=== PATIENT | male | born 1940 | race Caucasian/White ===

== ENCOUNTER 2016-09-15 12:38 | Day surgery (SDC) | payer MEDICARE ==
--- NOTE | ~2016-09-15 | EGD ---
EGD REPORT [facility] [address] [id number] NAME: GERTRUDIS ABDALLA : [birth year] STATUS : REG [facility]#: [id number] AGE: 76 ADM/REG DATE : 09/15/16 MR#: [id number] REPORT SERV DATE: 09/15/16 DICTATED BY: GOOD CINTRON DATE: 09/15/16 REPORT STATUS : Draft TRANSCRIBED BY: [employer] DATE: 09/15/16 Endoscopy Center Patient Name: Gertrudis Abdalla Date of : 1940 Attending MD: GOOD CINTRON MD Procedure Date No Time: 09/15/2016 Procedure: Upper GI endoscopy Indications: Gastro-esophageal reflux disease, Diarrhea Referring MD: TAYLOR THOMAS Medicines: See the Anesthesia note for documentation of the administered medications Complications: No immediate complications. Procedure: Pre-Anesthesia Assessment: - ASA Grade Assessment: III - A patient with severe systemic disease. After obtaining informed consent, the endoscope was passed under direct vision. Throughout the procedure, the patient's blood pressure, pulse, and oxygen saturations were monitored continuously. The GIF H190 [id number] was introduced through the mouth, and advanced to the second part of duodenum. The upper GI endoscopy was accomplished without difficulty. The patient tolerated the procedure well. Findings: The 2nd part of the duodenum was normal. Biopsies were taken with a cold forceps for histology. Erythematous mucosa was found in the duodenal bulb. Mild inflammation was found in the gastric antrum. Biopsies were taken with a cold forceps for histology. The cardia and gastric fundus were normal on retroflexion. A small hiatus hernia was present. There were esophageal mucosal changes suspicious for short-segment Ho's esophagus present in the lower third of the esophagus. The maximum longitudinal extent of these mucosal changes was 1 cm in length. Biopsies were taken with a cold forceps for histology. Impression: - Normal 2nd part of the duodenum. Biopsied. - Erythematous duodenopathy. - Gastritis. Biopsied. - Hiatus hernia. - Esophageal mucosal changes suspicious for short-segment Ho's esophagus. Biopsied. Recommendation: - Patient has a contact number available for EGD REPORT [address] [address] NAME: GERTRUDIS ABDALLA : 40 STATUS : REG [facility] [place] PAT#: [id number] AGE: 76 ADM/REG DATE : 09/15/16 MR#: [id number] REPORT SERV DATE: 09/15/16 DICTATED BY: GOOD CINTRON DATE: 09/15/16 REPORT STATUS : Draft TRANSCRIBED BY: [employer] DATE: 09/15/16 emergencies. The signs and symptoms of potential delayed complications were discussed with the patient. Return to normal activities tomorrow. Written discharge instructions were provided to the patient. - Regular diet. - Continue present medications. - FOR YOUR BIOPSY RESULTS: Please go to [email or web address] and register to receive your results via the portal. Your biopsy results will be posted there in about 7 to 10 days. IF you do not see result in 10 days, call office. Procedure Code(s): --- Professional --- 07569, Esophagogastroduodenoscopy, flexible, transoral; with biopsy, single or multiple Diagnosis Code(s): --- Professional --- K22.9, Disease of esophagus, unspecified K31.89, Other diseases of stomach and duodenum K29.70, Gastritis, unspecified, without bleeding K44.9, Diaphragmatic hernia without obstruction or gangrene K21.9, Gastro-esophageal reflux disease without esophagitis R19.7, Diarrhea, unspecified CPT copyright 2013 [employer] [place] [employer]. All rights reserved. The codes documented in this report are preliminary and upon label coder review may be revised to meet current compliance requirements. Good Cintron MD GOOD CINTRON MD 09/15/2016 2:21 PM This report has been signed electronically. Number of Addenda: 0 Note Initiated On: 09/15/2016 2:08 PM Scope Withdrawal Time 0 hours 0 minutes 0 seconds [id number] [place] [place] [id number]
--- NOTE | ~2016-09-15 | EGD ---
EGD REPORT [facility] [address] [address] NAME: GERTRUDIS ABDALLA : 40 STATUS : REG [facility]#: [id number] AGE: 76 ADM/REG DATE : 09/15/16 MR#: [id number] REPORT SERV DATE: 09/15/16 DICTATED BY: GOOD CINTRON DATE: 09/15/16 REPORT STATUS : Draft TRANSCRIBED BY: [employer] DATE: 09/15/16 Endoscopy Center Patient Name: Gertrudis Abdalla Date of : 1940 Attending MD: GOOD CINTRON MD Procedure Date No Time: 09/15/2016 Procedure: Upper GI endoscopy Indications: Gastro-esophageal reflux disease, Diarrhea Referring MD: TAYLOR THOMAS Medicines: See the Anesthesia note for documentation of the administered medications Complications: No immediate complications. Procedure: Pre-Anesthesia Assessment: - ASA Grade Assessment: III - A patient with severe systemic disease. After obtaining informed consent, the endoscope was passed under direct vision. Throughout the procedure, the patient's blood pressure, pulse, and oxygen saturations were monitored continuously. The GIF H190 [id number] was introduced through the mouth, and advanced to the second part of duodenum. The upper GI endoscopy was accomplished without difficulty. The patient tolerated the procedure well. Findings: The 2nd part of the duodenum was normal. Biopsies were taken with a cold forceps for histology. Erythematous mucosa was found in the duodenal bulb. Mild inflammation was found in the gastric antrum. Biopsies were taken with a cold forceps for histology. The cardia and gastric fundus were normal on retroflexion. A small hiatus hernia was present. There were esophageal mucosal changes suspicious for short-segment Ho's esophagus present in the lower third of the esophagus. The maximum longitudinal extent of these mucosal changes was 1 cm in length. Biopsies were taken with a cold forceps for histology. Impression: - Normal 2nd part of the duodenum. Biopsied. - Erythematous duodenopathy. - Gastritis. Biopsied. - Hiatus hernia. - Esophageal mucosal changes suspicious for short-segment Ho's esophagus. Biopsied. Recommendation: - Patient has a contact number available for EGD REPORT [address] [address] NAME: GERTRUDIS ABDALLA : 40 [place] [facility] [place] [id number] AGE: 76 ADM/REG DATE : 09/15/16 MR#: [id number] REPORT SERV DATE: 09/15/16 DICTATED BY: GOOD CINTRON DATE: 09/15/16 REPORT STATUS : Draft TRANSCRIBED BY: [employer] DATE: 09/15/16 emergencies. The signs and symptoms of potential delayed complications were discussed with the patient. Return to normal activities tomorrow. Written discharge instructions were provided to the patient. - Regular diet. - Continue present medications. - FOR YOUR BIOPSY RESULTS: Please go to [email or web address] and register to receive your results via the portal. Your biopsy results will be posted there in about 7 to 10 days. IF you do not see result in 10 days, call office. Procedure Code(s): --- Professional --- 20247, Esophagogastroduodenoscopy, flexible, transoral; with biopsy, single or multiple Diagnosis Code(s): --- Professional --- K22.9, Disease of esophagus, unspecified K31.89, Other diseases of stomach and duodenum K29.70, Gastritis, unspecified, without bleeding K44.9, Diaphragmatic hernia without obstruction or gangrene K21.9, Gastro-esophageal reflux disease without esophagitis R19.7, Diarrhea, unspecified CPT copyright 2013 [employer]. All rights reserved. The codes documented in this report are preliminary and upon inpatient coder review may be revised to meet current compliance requirements. Good Cintron MD GOOD CINTRON MD 09/15/2016 2:21 PM This report has been signed electronically. Number of Addenda: 0 Note Initiated On: 09/15/2016 2:08 PM Scope Withdrawal Time 0 hours 0 minutes 0 seconds [id number] [place] [address]
--- NOTE | ~2016-09-15 | EGD ---
EGD REPORT [facility] [address] [address] NAME: GERTRUDIS ABDALLA : 40 STATUS : REG [facility]#: [id number] AGE: 76 ADM/REG DATE : 09/15/16 MR#: [id number] REPORT SERV DATE: 09/15/16 DICTATED BY: GOOD CINTRON DATE: 09/15/16 REPORT STATUS : Draft [facility]: [facility] DATE: 09/15/16 Endoscopy Center Patient Name: Gertrudis Abdalla Date of : 1940 Attending MD: GOOD CINTRON MD Procedure Date No Time: 09/15/2016 Procedure: Colonoscopy Indications: Diarrhea, Iron deficiency anemia Referring MD: TAYLOR THOMAS Medicines: See the Anesthesia note for documentation of the administered medications Complications: No immediate complications. Procedure: Pre-Anesthesia Assessment: - ASA Grade Assessment: III - A patient with severe systemic disease. After I obtained informed consent, the scope was passed under direct vision. Throughout the procedure, the patient's blood pressure, pulse, and oxygen saturations were monitored continuously. The PCF [id number] was introduced through the anus and advanced to the terminal ileum, with identification of the appendiceal orifice and IC valve. The colonoscopy was performed without difficulty. The patient tolerated the procedure well. The quality of the bowel preparation was fair. Findings: The perianal and digital rectal examinations were normal. Diverticula were found in the sigmoid colon. Internal hemorrhoids were found during retroflexion and were small. Normal mucosa was found in the ascending colon. Biopsies were taken with a cold forceps for histology. Normal mucosa was found in the rectum. Biopsies were taken with a cold forceps for histology. Fair prep with scattered fecal debris, no large gross lesions Impression: - Diverticulosis in the sigmoid colon. - Internal hemorrhoids. - Normal mucosa in the ascending colon. Biopsied. - Normal mucosa in the rectum. Biopsied. - Fair prep with scattered fecal debris, no large gross lesions Recommendation: - Patient has a contact number available for emergencies. The signs and symptoms of potential delayed complications were discussed with the patient. Return to EGD REPORT [address] [place]. [address] NAME: GERTRUDIS ABDALLA : 40 [place]US : [place] [facility] [place] [id number] AGE: 76 ADM/REG DATE : 09/15/16 MR#: [id number] REPORT SERV DATE: 09/15/16 DICTATED BY: GOOD CINTRON DATE: 09/15/16 REPORT STATUS : Draft TRANSCRIBED BY: [employer] DATE: 09/15/16 normal activities tomorrow. Written discharge instructions were provided to the patient. - Regular diet. - Continue present medications. - Repeat colonoscopy in 1 year because the bowel preparation was suboptimal. - Follow up with Dr Cintron or his nurse practitioner in 6 weeks - FOR YOUR BIOPSY RESULTS: Please go to [email or web address] and register to receive your results via the portal. Your biopsy results will be posted there in about 7 to 10 days. IF you do not see result in 10 days, call office. Procedure Code(s): --- Professional --- 49971, Colonoscopy, flexible, proximal to splenic flexure; with biopsy, single or multiple Diagnosis Code(s): --- Professional --- K64.8, Other hemorrhoids K57.30, Diverticulosis of large intestine without perforation or abscess without bleeding R19.7, Diarrhea, unspecified D50.9, Iron deficiency anemia, unspecified CPT copyright 2013 [employer]. All rights reserved. The codes documented in this report are preliminary and upon unit controller review may be revised to meet current compliance requirements. Good Cintron MD GOOD CINTRON MD 09/15/2016 2:37 PM This report has been signed electronically. Number of Addenda: 0 Note Initiated On: 09/15/2016 2:04 PM Scope Withdrawal Time 0 hours 9 minutes 40 seconds [email or web address] [id number]
[~2016-09-15 12:38] MED LIST: ARICEPT10 PO; ATEN50 PO; CADUET10 MG/40 M PO; CRESTOR20 MG PO; DEXILANT PO; FOLIC PO; FORTAMET500 MG PO; GLUCOPHAGE1000 MG PO; LANTUS SC; LEVOTHYROXIN50 MCG PO; LEXAPRO10 PO; LOTREL1 CA3 PO; PROTONIX PO; RISP3 PO; SEROQUEL XR300 MG PO; SEROQUEL300 MG PO; SPIRO25 PO; TEKTURNA HCT1 TA2 PO; [UNRECOGNIZED DRUG - CODE]; [UNRECOGNIZED DRUG - OTHER] PO; [UNRECOGNIZED DRUG - OTHER] PO; [UNRECOGNIZED DRUG - OTHER] PO
== END 2016-09-15 23:59 | disposition home health service (06) ==
LOC: DMU 12:38
PROVIDERS: Internal Medicine Gastroenterology
PROC: 0DB68ZX Excision of Stomach, Via Natural or Artificial Opening Endoscopic, Diagnostic (ICD-10-PCS; 2016-09-15)
PROC: 0DBK8ZX Excision of Ascending Colon, Via Natural or Artificial Opening Endoscopic, Diagnostic (ICD-10-PCS; 2016-09-15)
PROC: 0DBP8ZX Excision of Rectum, Via Natural or Artificial Opening Endoscopic, Diagnostic (ICD-10-PCS; 2016-09-15)
PROC: 0DB98ZX Excision of Duodenum, Via Natural or Artificial Opening Endoscopic, Diagnostic (ICD-10-PCS; principal; 2016-09-15 14:30)
PROC: 0DB38ZX Excision of Lower Esophagus, Via Natural or Artificial Opening Endoscopic, Diagnostic (ICD-10-PCS; 2016-09-15 14:30)
DX: K29.50 Unspecified chronic gastritis without bleeding (principal); K21.0 Gastro-esophageal reflux disease with esophagitis; K64.8 Other hemorrhoids; K57.30 Diverticulosis of large intestine without perforation or abscess without bleeding; K44.9 Diaphragmatic hernia without obstruction or gangrene; E11.9 Type 2 diabetes mellitus without complications; F31.9 Bipolar disorder, unspecified; F41.9 Anxiety disorder, unspecified; G30.9 Alzheimer's disease, unspecified
CPT/HCPCS: 82962; 88305; 88342